=== PATIENT | female | born 1995 | race African-American/Black ===

== ENCOUNTER 2016-12-06 10:02 | Emergency (ER) | payer OTHER ==
[~2016-12-06] VITALS: Ht 165.1 cm; Wt 49.0 kg
[~2016-12-06 10:02] MED LIST: NAPROSYN500 MG PO; TIZANIDINE HCL4 MG PO
[2016-12-06] MEDS ORDERED: NORFLEX100 MG PO ×2 (10:41→10:43)
[2016-12-06] MEDS ORDERED: NAPROSYN500 MG PO ×2 (10:41→10:43)
[2016-12-06 11:28] VITALS: BP 120/85
== END 2016-12-06 11:29 | disposition home or self-care (01) ==
LOC: ER 10:02
DX: S80.02XA Contusion of left knee, initial encounter (principal); M54.9 Dorsalgia, unspecified; R07.89 Other chest pain; Z87.891 Personal history of nicotine dependence; V89.2XXA Person injured in unspecified motor-vehicle accident, traffic, initial encounter; Y93.89 Activity, other specified; Y92.410 Unspecified street and highway as the place of occurrence of the external cause; Y99.8 Other external cause status

== ENCOUNTER 2018-08-27 22:15 | Emergency (ER) | payer OTHER ==
[~2018-08-27] VITALS: Ht 165.1 cm; Wt 46.7 kg
[~2018-08-27 22:15] MED LIST changes: +NORFLEX100 MG PO
[2018-08-27] MEDS ORDERED: NORFLEX100 MG PO (23:30)
[2018-08-27] MEDS ORDERED: NAPROXEN375 MG PO (23:30)
[2018-08-28 00:33] VITALS: BP 102/55
== END 2018-08-28 00:42 | disposition home or self-care (01) ==
LOC: ER 22:15
DX: S16.1XXA Strain of muscle, fascia and tendon at neck level, initial encounter (principal); S20.211A Contusion of right front wall of thorax, initial encounter; Z87.891 Personal history of nicotine dependence; V89.2XXA Person injured in unspecified motor-vehicle accident, traffic, initial encounter; Y93.89 Activity, other specified; Y92.89 Other specified places as the place of occurrence of the external cause; Y99.8 Other external cause status